=== PATIENT | female | born 1955 | race Caucasian/White ===

== ENCOUNTER 2017-10-17 07:16 | Emergency (ER) | payer OTHER ==
[2017-10-17 07:26] VITALS: BP 157/79
--- NOTE | 2017-10-17 07:34 | UC ---
Ear Complaint HPI - HPI Summary HPI Summary: LEFT EAR PAIN X 1 DAY PAIN IS SEVER, NO RADIATION, + COLD SX FOR THE PAST FEW DAYS , NO FEVER, NO CHILLS - History of Current Complaint Chief Complaint: UCEar Stated Complaint: LFT EAR PAIN Time Seen by Provider: 10/17/17 07:26 Hx Obtained From: Patient Onset/Duration: Gradual Onset, Lasting Days - 1, Still Present Severity Initially: Moderate Severity Currently: Moderate Aggravating Factors: Nothing Alleviating Factors: Nothing Associated Signs/Symptoms: Positive: URI Symptoms. Negative: Discharge, Hearing Loss, Foreign Body Sensation, Trauma to Ear, Swelling @ - Allergies/Home Medications Allergies/Adverse Reactions: Allergies Allergy/AdvReac Type Severity Reaction Status Date / Time Cefaclor [From [facility]] Allergy Intermediate Hives Verified 10/17/17 07:21 Home Medications: Home Medications Nrforkfrgglzn-Rdwvbqzrqu-Roogm [Martha Ladd Plus Severe 10-12.5-20-650 mg] 1 pow PO Q4H PRN 10/17/17 [History Confirmed 10/17/17] PMH/Surg Hx/FS Hx/Imm Hx Cardiovascular History: Hypertension - Surgical History Surgical History: None - Family History Known Family History: Positive: Hypertension - Social History Alcohol Use: Occasionally Substance Use Type: None Smoking Status (MU): Never Smoked Tobacco - Immunization History Most Recent Influenza Vaccination: Not the Season Review of Systems Constitutional: Negative Skin: Negative Eyes: Negative ENT: Ear Ache, Nasal Discharge Respiratory: Negative Cardiovascular: Negative Gastrointestinal: Negative Is Patient Immunocompromised?: No All Other Systems Reviewed And Are Negative: Yes Physical Exam Triage Information Reviewed: Yes Appearance: Well-Appearing, No Pain Distress, Well-Nourished Vital Signs: Initial Vital Signs Temp 99.1 F 10/17/17 07:20 Pulse 100 10/17/17 07:20 Resp 16 10/17/17 07:20 BP 157/79 10/17/17 07:20 Pulse Ox 97 10/17/17 07:20 Vital Signs Reviewed: Yes Eyes: Positive: Conjunctiva Clear ENT: Positive: Normal ENT inspection, Hearing grossly normal, Pharynx normal, Nasal drainage, TM bulging - LEFT, TM dull - LEFT, TM red - LEFT Neck exam: Normal Neck: Positive: Supple, Nontender Respiratory: Positive: Chest non-tender, Lungs clear, Normal breath sounds Cardiovascular: Positive: RRR, No Murmur, Pulses Normal Skin Exam: Normal Ear Complaint Course/Dx - Course Course Of Treatment: ELEVATED BP: CONT. WITH CURRENT MEDS - Differential Dx/Diagnosis Provider Diagnoses: OTITIS MEDAI LEFT EAR. HYPERTENSION Discharge - Discharge Plan Condition: Stable Disposition: HOME Prescriptions: Amoxicillin PO (*) [Amoxicillin 875 MG (*)] 875 mg PO BID #20 tab Patient Education Materials: Otitis Media (ED) Referrals: Doni Shaver MD [Primary Care Provider] - 7 Days
== END 2017-10-17 07:33 | disposition home or self-care (01) ==
LOC: UCCORT 07:16
DX: H66.92 Otitis media, unspecified, left ear (principal); I10 Essential (primary) hypertension
CPT/HCPCS: 99212; G0463

== ENCOUNTER 2018-11-29 20:05 | Emergency (ER) | payer OTHER ==
--- OUTSIDE RECORDS SUMMARY | 2018-11-29 20:20 | XMS REPORT ---
:1955 Author Organization [facility] Address [address] [place] [address] Care Team Providers Name Role Phone Yovanny Edmond Unavailable Unavailable PROBLEMS Type Condition ICD9-CM Code [id number] Onset Condition SNOMED Code Code Dates Status Problem Age-related M81.0 Active 002593759 osteoporosis without current pathological fracture Problem Leiomyoma of D25.9 Active 72521017 uterus, unspecified Problem Postmenopausal N95.0 Active 11981753 bleeding Problem Disorder of bone M85.9 Active 04411109 density and structure, unspecified ALLERGIES Substance Reaction Event Type Date Status Flagyl diarrhea and cramping Drug Allergy Oct, Active Ceclor diarrhea Drug Allergy Oct, Active ENCOUNTERS Encounter Location Date Diagnosis [facility] [address] Aug, [place] [id number] [facility] 11 Aug, 2019 [place] [id number] [facility] 103 Dec, [place]BG[place], [place] [id number] [facility] Oct, Age-related osteoporosis OBGYN [facility] without current [place], [place] [id number] pathological fracture M81.0 [facility] 103 16 Aug, 2018 O[place]YN [place] [id number] [facility] 103 13 Aug, 2018 Inconclusive mammogram OBGYN [facility] R92.2 [place], [place] [id number] [facility] 29 Oct, 2018 Encounter for gynecological OBGYN [facility] examination (general) [place], [place] [id number] (routine) without abnormal findings Z01.419 ; Encounter for screening for malignant neoplasm of cervix Z12.4 ; Encounter for screening mammogram for malignant neoplasm of breast Z12.31 ; Encounter for screening for malignant neoplasm of colon Z12.11 ; Disorder of bone density and structure, unspecified M85.9 and Leiomyoma of uterus, unspecified D25.9 [place] [facility] 103 Jul, Leiomyoma of uterus, OBGYN [facility] unspecified D25.9 [place], [place] [id number] [place] [facility] 103 Jul, [place] [id number] [place] [facility] 103 Jul, [facility] [place], [place] [id number] (routine) without abnormal findings Z01.419 ; Encounter for screening mammogram for malignant neoplasm of breast Z12.31 ; Encounter for screening for malignant neoplasm of colon Z12.11 ; Encounter for screening for malignant neoplasm of cervix Z12.4 ; Leiomyoma of uterus, unspecified D25.9 and Disorder of bone density and structure, unspecified M85.9 [facility] Jul, [place] [id number] [place] [facility] 103 Jul, Leiomyoma of uterus, OBGYN [facility] unspecified D25.9 [place], [place] [id number] [place] [facility] 103 Jul, [facility] [place], [place] [id number] (routine) with abnormal findings Z01.411 ; Encounter for screening for malignant neoplasm of cervix Z12.4 ; Encounter for screening mammogram for malignant neoplasm of breast Z12.31 ; Encounter for screening for malignant neoplasm of colon Z12.11 ; Leiomyoma of uterus, unspecified D25.9 ; Postmenopausal bleeding N95.0 and Disorder of bone density and structure, unspecified M85.9 [facility] Jul, Leiomyoma of uterus, [facility] unspecified D25.9 ; [place], [place] [id number] Postmenopausal bleeding N95.0 and Benign endometrial hyperplasia N85.01 [facility] Jul, [place] [id number] [facility] 103 Jul, OBGYN [place] [id number] [facility] 103 Jul, Postmenopausal bleeding OBN [facility] 627.1 ; Osteopenia 733.90 ; [place], [place] [id number] ROUTINE LABORATORY MANAGER EXAMINATION V72.31 ; PAP SMEAR W/O LABORATORY MANAGER EXAM V76.2 ; SCREEN MALIG NEOP-COLON V76.51 ; SCREEN MAMMOGRAM NEC V76.12 and HEMATURIA NOS 599.70 [facility] 103 Dec, Postmenopausal bleeding OBGYN [facility] 627.1 and Endometrial polyp [place], [place] [id number] 621.0 [facility] Jul, [place] [id number] [facility] Jul, Postmenopausal bleeding OBN [facility] 627.1 and Endometrial polyp [place], [place] [id number] 621.0 [facility] [address] [place], Jul, [place] [id number] [facility] 103 Jul, Postmenopausal bleeding OBGYN [facility] 627.1 and Stenosis of [place], [place] [id number] cervix 622.4 [facility] 103 Jul, [place]BG[place] [id number] [facility] 103 Jul, [place]BG[place] [id number] [facility] 103 Jul, Postmenopausal bleeding OBGYN [facility] 627.1 and Stenosis of [place], [place] [id number] cervix 622.4 [facility] 103 Jul, Postmenopausal bleeding OBGYN [facility] 627.1 [place] [id number] [facility] [address] [place] [address] Jul, Osteopenia [address] [place], Postmenopausal bleeding [place] [id number] 627.1 [facility] 103 Apr, Osteopenia 733.90 O[place]YN [place], [place] [id number] [facility] 103 Apr, Osteopenia 733.90 O[place]YN [place], [place] [id number] [facility] 103 Apr, ROUTINE LABORATORY MANAGER EXAMINATION OBGYN [facility] V72.31 ; PAP SMEAR W/O LABORATORY MANAGER [place], [place] [id number] EXAM V76.2 ; SCREEN MALIG NEOP-COLON V76.51 and SCREEN MAMMOGRAM NEC V76.12 [facility] 103 Apr, ROUTINE LABORATORY MANAGER EXAMINATION OBGYN [facility] V72.31 ; SCREEN MALIG [place], [place] [id number] NEOP-COLON V76.51 and SCREEN MAMMOGRAM NEC V76.12 [facility] 103 Apr, OBGYN [place], [place] [id number] [facility] 103 Mar, [facility] 627[facility]1 ; Intramural [place], [place] [id number] leiomyoma of uterus 218.1 ; PAP SMEAR W/O LABORATORY MANAGER EXAM V76.2 ; ROUTINE LABORATORY MANAGER EXAMINATION V72.31 and SCREEN MALIG NEOP-COLON V76.51 [facility] 103 Dec, [facility] 62.1 and Intramural [place], [place] [id number] leiomyoma of uterus 218.1 [facility] [address] [place], 14 Dec, 2011 Medical [facility] [id number] [facility] 103 Dec, Postmenopausal bleeding OBGYN [address] 627.1 ; Ovarian cyst NOS [place], [place] [id number] 620.2 and Intramural leiomyoma of uterus 218.1 [place] [facility] 103 Dec, Ovarian cyst NOS 620.2 and OBGYN [facility] Intramural leiomyoma of [place], [place] [id number] uterus 218.1 [place] [facility] 103 Dec, [place], [place] [id number] [place] [facility] 103 Oct, [facility] [address] [place] [id number] [place] [facility] Oct, [place]BG[place], [place] [id number] [place] [facility] 103 Oct, Postmenopausal bleeding [place] [address]. ; ENDOMETRIAL [place], [place] [id number] HYPERPLASIA SIMPLE WITHOUT ATYPIA 621.31 and Hypertension 401.9 [place] [facility] 103 Oct, [facility] [address] [place] [id number] [place] [facility] 103 Oct, Postmenopausal bleeding [place] [address] [place] [id number] [place] [facility] 103 Oct, [place] [id number] [place] [facility] 103 Oct, Postmenopausal bleeding OBN [facility] [address] [place] [id number] [place] [facility] 103 Mar, OBGYN [place], [place] [id number] [place] [facility] 103 Mar, ROUTINE LABORATORY MANAGER EXAMINATION [facility] V72.31 ; Leiomyoma of [place], [place] [id number] uterus, unspecified 218.9 and Breast Mass 611.72 [place] [facility] 103 February, ROUTINE LABORATORY MANAGER EXAMINATION [facility] V72.31 ; Leiomyoma of [place], [place] [id number] uterus, unspecified 218.9 and Breast Mass 611.72 [place] [facility] 103 Dec, OVARIAN CYST NEC/ NOS 620.2 OBGYN [facility] ; Leiomyoma of uterus, [place], [place] [id number] unspecified 218.9 and Menometrorrhagia 626.2 [place] [facility] 103 Dec, Ovarian cyst NOS 620.2 and OBGYN [facility] Leiomyoma of uterus, [place], [place] [id number] unspecified 218.9 [place] [facility] 103 Oct, [place], [place] [id number] [place] [facility] 103 Oct, Endometrial polyp 621.0 ; [facility] Men[facility] 626.2 ; [place], [place] [id number] Leiomyoma of uterus, unspecified 218.9 and OVARIAN CYST NEC/NOS 620.2 [place] [facility] 103 Sep, [place], [place] [id number] [place] [facility] 103 Sep, [place], [place] [id number] [facility] [address] [place], 10 Sep, 2009 [facility] [id number] [place] [facility] 103 Sep, Menometrorrhagia 626.2 ; OBGYN [facility] Leiomyoma of uterus, [place], [place] [id number] unspecified 218.9 and OVARIAN CYST NEC/NOS 620.2 [place] [facility] 103 Sep, [place], [place] [id number] [place] [facility] 103 Sep, Menometrorrhagia 626.2 [place] [id number] [place] [facility] 103 Sep, Menometrorrhagia 626.2 ; OBGYN [facility] UTERINE FIBROIDS-UNSPEC [place], [place] [id number] 218.9 and Ovarian cyst NOS 620.2 [place] [facility] 103 Sep, Menometrorrhagia 626.2 [place], [place] [id number] [place] [facility] 103 Aug, [place] [id number] [place] [facility] Aug, [place], [place] [id number] [place] [facility] 103 Apr, OVARIAN CYST NEC/ NOS 620.2 [facility] ; [place] 782.62 ; [place], [place] [id number] Leiomyoma of uterus, unspecified 218.9 and Amenorrhea 626.0 [place] [facility] 103 Apr, Ovarian cyst NOS 620.2 and OBGYN [facility] Leiomyoma of uterus, [place], [place] [id number] unspecified 218.9 [place] [facility] 103 February, Le[facility]omyoma of uterus, [facility] unspecified 218.9 ; Breast [place], [place] [id number] Mass 611.72 and [place] 782.62 [place] [facility] 103 February, Ovarian cyst NOS 620.2 and [facility] UTER[facility] FIBROIDS-UNSPEC [place], [place] [id number] 218.9 [place] [facility] 103 February, ROUTINE LABORATORY MANAGER EXAMINATION [facility] V72.31 ; Leiomyoma of [place], [place] [id number] uterus, unspecified 218.9 and OVARIAN CYST NEC/NOS 620.2 [place] [facility] 103 Oct, Breast Mass 611.72 OBN [place], [place] [id number] [place] [facility] 103 Oct, [place] [id number] [place] [facility] 103 Apr, [facility]RIAL [facility]IA [facility] SIMPLE WITHOUT ATYPIA [place], [place] [id number] 621.31 ; OVARIAN CYST NEC/NOS 620.2 and Leiomyoma of uterus, unspecified 218.9 [place] [facility] 103 Mar, Ovarian cyst NOS 620.2 O[place] [id number] [place] [facility] 103 February, Leiomyoma of uterus, [facility] unspecified 218.9 and [place], [place] [id number] OVARIAN CYST NEC/NOS 620.2 [place] [facility] 103 Jan, UTERINE FIBROIDS- UNSPEC OBGYN [facility] 218.9 and Enlarged uterus [place], [place] [id number] 621.2 [place] [facility] 103 Jan, ROUTINE LABORATORY MANAGER EXAMINATION [facility] V72.31 ; Leiomyoma of [place], [place] [id number] uterus, unspecified 218.9 and Menometrorrhagia 626.2 [place] [facility] 103 Jan, [place] [id number] [place] [facility] 103 February, [place] [id number] [place] [facility] 103 Dec, ROUTINE LABORATORY MANAGER EXAMINATION [facility] V72.31 [place], [place] [id number] [place] [facility] 103 Oct, PELVIC PAIN 625.9 and OBGYN [facility] Menometrorrhagia 626.2 [place], [place] [id number] [place] [facility] 103 Sep, [place], [place] [id number] [place] [facility] 103 Sep, Menometrorrhagia 626.2 ; [facility] Endometrial polyp 621.0 and [place], [place] [id number] PELVIC PAIN 625.9 [place] [facility] 103 Sep, [place], [place] [id number] [place] [facility] 103 Sep, Menometrorrhagia 626.2 ; OBGYN [facility] Leiomyoma of uterus, [place], [place] [id number] unspecified 218.9 ; Endometrial polyp 621.0 and ENDOMETRIAL HYPERPLASIA SIMPLE WITHOUT ATYPIA 621.31 [place] [facility] 103 Aug, [place] [id number] [place] [facility] 103 Jul, Menometrorrhagia 626.2 ; OBGYN [facility] ENDOMETRIAL HYPERPLASIA [place], [place] [id number] SIMPLE WITHOUT ATYPIA 621.31 ; Endometrial polyp 621.0 and Leiomyoma of uterus, unspecified 218.9 [place] [facility] 103 Jul, Menometrorrhagia 626.2 [place] [id number] [place] [facility] Jul, [place], [place] [id number] [facility] Jul, [place], [place] [id number] [facility] Jul, Menometrorrhagia 626.2 ; [facility] Leiomyoma of uterus, [place], [place] [id number] unspecified 218.9 and Endometrial polyp 621.0 [place] [facility] Jul, Menometrorrhagia 626.2 and [facility] Adnexal mass 625.8 [place], [place] [id number] [facility] 103 Jul, [place] [id number] [facility] Dec, Well Adult exam V 70.0 ; [facility] ROUTINE LABORATORY MANAGER EXAMINATION [place], [place] [id number] V72.31 and Breast Mass 611.72 [facility] 103 20 Jul, 2005 Breast Mass 611.72 and [facility] BREAST [facility] 611.71 [place], [place] [id number] IMMUNIZATIONS No Known Immunizations SOCIAL HISTORY Never Assessed REASON FOR REFERRAL FUNCTIONAL STATUS PLAN OF CARE Activity Details Follow Up F/u 1-2 mo f/u to starting Fosamax. Reason: VITAL SIGNS Height 68 in 2018-11-06 Weight 125 lbs 2018-11-06 BMI 19.00 kg/m2 2018-11-06 Blood pressure systolic 110 mm Hg 2018-11-06 Blood pressure diastolic 56 mm Hg 2018-11-06 MEDICATIONS Medication Instructions Dosage Frequency Start End Date Duration Status Date Fosamax 70 mg orally once a 1 tab(s) Oct, day(s) Active week 2018 calcium-vitamin orally bid 1 tab(s) 12h 30 day(s) Active D 600 mg-200 units PROCEDURES No Known procedures RESULTS No Results REASON FOR VISIT F/U Dexa Insurance Providers [facility] Member Patient Patient Patient Patient Patient Subscriber Subscriber Subscriber Group Insurance Plan Plan Plan Plan ID Relationship Address Phone Name Date of ID Name Date of No Type Insurance Insurance Insurance Coverage to Subscriber Address Phone Name Dates MVP [phone] MVP self Ana Lilia [id number] [place] [address] MVP [phone] MVP Ana Lilia [id number] [place] [address] Lifetime [phone] Lifetime self Ana Lilia [id number] Benefit [place] [address] Benefit [address] [employer] [place] [employer] [id number] MVP [phone] MVP self Ana Lilia [id number] [place] [address] MEDICAL (GENERAL) HISTORY Type Description Date Medical History hypertension Medical History simple EM hyperplasia (resolved with D&C and hormonal therapy) in '07 Medical History anemia Medical History Breast cysts (stable) Surgical History D&C 2006 Surgical History D+C 2008 Surgical History colonoscopy 2007 Surgical History hysteroscopy, D&C 01/12/12 Surgical History Hysteroscopy/D&C: EM polyp, PMB 2013 Hospitalization History childbirth
[2018-11-29 20:21] VITALS: BP 168/80
--- NOTE | 2018-11-29 20:32 | UC ---
Throat Pain/Nasal Yunior HPI - HPI Summary HPI Summary: 63-year-old woman here with a chief complaint of sore throat. Started 4 days ago. It's gotten worse since then. Swallowing makes the pain worse. Not swallowing decreases the pain. She's been having some rhinorrhea for 2 weeks. Denies any ear pain or cough or chest congestion. No recent fevers. - History of Current Complaint Chief Complaint: UCRespiratory Stated Complaint: ST Time Seen by Provider: 11/29/18 20:21 Pain Intensity: 5 - Allergies/Home Medications Allergies/Adverse Reactions: Allergies Allergy/AdvReac Type Severity Reaction Status Date / Time [facility] Allergy Hives Verified 11/29/18 20:19 PMH/Surg Hx/FS Hx/Imm Hx Previously Healthy: Yes - Surgical History Surgical History: None - Family History Known Family History: Positive: Hypertension - Social History Alcohol Use: Occasionally Substance Use Type: None Smoking Status (MU): Never Smoked Tobacco - Immunization History Most Recent Influenza Vaccination: Not the Season Review of Systems All Other Systems Reviewed And Are Negative: Yes Constitutional: Positive: Negative Skin: Positive: Negative Eyes: Positive: Negative ENT: Positive: Sore Throat, Nasal Discharge Respiratory: Positive: Negative Cardiovascular: Positive: Negative Gastrointestinal: Positive: Negative Motor: Positive: Negative Neurovascular: Positive: Negative Musculoskeletal: Positive: Negative Neurological: Positive: Negative Psychological: Positive: Negative Is Patient Immunocompromised?: No Physical Exam Triage Information Reviewed: Yes Appearance: Well-Appearing, No Pain Distress, Well-Nourished Vital Signs: Initial Vital Signs Temp 98.4 F 11/29/18 20:19 Pulse 101 11/29/18 20:19 Resp 18 11/29/18 20:19 BP 168/80 11/29/18 20:19 Pulse Ox 100 11/29/18 20:19 Vital Signs Reviewed: Yes Eye Exam: Normal Eyes: Positive: Conjunctiva Clear ENT: Positive: Pharyngeal erythema, Nasal congestion, Nasal drainage, TMs normal Neck exam: Normal Neck: Positive: Supple Respiratory: Positive: Lungs clear, Normal breath sounds, No respiratory distress Cardiovascular: Positive: RRR Musculoskeletal Exam: Normal Musculoskeletal: Positive: Strength Intact, ROM Intact Neurological Exam: Normal Neurological: Positive: Alert, Muscle Tone Normal Psychological Exam: Normal Psychological: Positive: Normal Response To Family, Age Appropriate Behavior Skin Exam: Normal Throat Pain/Nasal Course/Dx - Course Course Of Treatment: URI SX X 2 WEEKS. PATIENT HAD GI UPSET WITH AMOXICILLIN IN THE PAST THEREFORE, RX AZITHROMYCIN - Differential Dx/Diagnosis Provider Diagnosis: Pharyngitis Discharge - Sign-Out/Discharge Documenting (check all that apply): Patient Departure All imaging exams completed and their final reports reviewed: No Studies - Discharge Plan Condition: Stable Disposition: HOME Prescriptions: Azithromycin 250 mg PO DAILY #4 tablet Patient Education Materials: Pharyngitis (ED) Referrals: Doni Shaver MD [Primary Care Provider] - Additional Instructions: FOLLOW UP WITH YOUR DOCTOR IF NOT COMPLETELY IMPROVED. GET RECHECKED SOONER WITH ANY WORSENING OF YOUR CONDITION OR QUESTIONS OR CONCERNS. - Billing Disposition and Condition Condition: STABLE Disposition: Home
[2018-11-29] MEDS ORDERED: Azithromycin TAB* 250 MG PO ONE (20:55)
== END 2018-11-29 21:01 | disposition home or self-care (01) ==
LOC: UCCORT 20:05
DX: J02.9 Acute pharyngitis, unspecified (principal); Z88.1 Allergy status to other antibiotic agents
CPT/HCPCS: 87651; 99212; A9270-GY; G0463